=== PATIENT | male | born 1970 | race Caucasian/White ===

== ENCOUNTER 2024-03-11 08:01 | Outpatient (CLI) | payer MEDICAID, SELFPAY ==
[2024-03-11 08:56] LABS: Basophils % 0.9 %; Eosinophils # 0.1 10^3/uL (0.0-0.8); Eosinophils % 2.6 %; Hematocrit 44.6 % (37-53); Lymphocytes # 1.6 10^3/uL (0.8-4.8); Mean Corpuscular HGB Conc 33.6 g/dL (30-55); Mean Corpuscular Hemoglobin 30.1 pg (27-33); Mean Corpuscular Volume 89.6 fl (82-101); Mean Platelet Volume 10.7 fL (7.4-10.4); Monocytes # 0.7 10^3/uL (0.2-0.9); Monocytes % 15.5 %; Neutrophils # 2.04 10^3/uL (1.8-7.7); Nucleated Red Blood Cells % 0 %; Platelet Count 162 10^3/cmm (157-399); Red Blood Count 4.98 10^6/uL (3.85-5.65); Red Cell Distribution Width 13.2 % (12.1-15.1); White Blood Count 4.53 10^3/uL (3.29-11.43)
[2024-03-11 09:24] LABS: Prostate Specific Antigen Scr 1.22 ng/mL (0-4)
[2024-03-11 09:35] LABS: Alanine Aminotransferase 111 U/L (0-41); Alkaline Phosphatase 65 U/L (40-130); Anion Gap 12.2 (5-19); Aspartate Amino Transferase 62 U/L (0-40); Blood Urea Nitrogen 12 mg/dL (6-20); Calcium 8.6 mg/dL (8.5-10.5); Carbon Dioxide 25 mmol/L (22-29); Chloride 104 mmol/L (98-107); Glomerular Filtration Rate 101.5 mL/min (90-130); Glucose 89 mg/dL (65-115); Osmolality Calculated 283 mOsm/kg (285-295); Potassium 4.2 mmol/L (3.5-5.1); Sodium 137 mmol/L (136-145); Total Bilirubin 0.8 mg/dL (0.15-1.2)
[2024-03-11 10:19] LABS: HIV 1 & 2 Antibody Non-Reactive (Non-Reactiv); HIV 1 & 2 Antigen Non-Reactive (Non-Reactiv)
[2024-03-11 10:50] LABS: Hepatitis C Virus Antibody Reactive (Nonreactive)
[2024-03-13 14:03] LABS: HEP C RNA Viral Load Quant 10900000 IU/mL (NOT DETECTED); HEP C RNA Viral Load Quant 7.04 Log IU/mL (NOT DETECTED)
== END 2024-03-11 08:02 | disposition home or self-care (01) ==
LOC: LAB 08:28
PROVIDERS: Visit Provider Family Medicine
DX: Z12.5 Encounter for screening for malignant neoplasm of prostate (principal); Z11.4 Encounter for screening for human immunodeficiency virus [HIV]; Z11.59 Encounter for screening for other viral diseases; I87.8 Other specified disorders of veins
CPT/HCPCS: 36415; 80053; 84443; 85025; 86803; 87522; 87806; G0103

== ENCOUNTER 2024-06-03 11:59 | Outpatient (CLI) | payer MEDICAID, SELFPAY ==
[2024-06-03 13:26] LABS: Hepatitis A Antibody IgM Non-Reactive (Nonreactive); Hepatitis B Core AB, Total Non-Reactive (Nonreactive); Hepatitis B Surface AB 13.1 (11.5-1000); Hepatitis B Surface Antigen Non-Reactive (Nonreactive)
[2024-06-03 14:48] LABS: Hepatitis C Virus Antibody Reactive (Nonreactive)
[2024-06-10 19:55] LABS: Hepatitis C Genotype RNA 3
== END 2024-06-03 12:00 | disposition home or self-care (01) ==
PROVIDERS: Visit Provider Student in an Organized Health Care Education/Training Program
DX: B19.20 Unspecified viral hepatitis C without hepatic coma (principal)
CPT/HCPCS: 36415; 86705; 86706; 86709; 86803; 87340; 87522; 87902

== ENCOUNTER 2024-06-19 08:21 | Outpatient (CLI) | payer MEDICAID, SELFPAY ==
--- NOTE | 2024-06-19 08:30 | US_ITS ---
WS: [id number] RIGHT UPPER QUADRANT ULTRASOUND HISTORY: assess for cirrhosis COMPARISON: None available. Liver: 16.7 cm in length. Normal size liver and echogenicity. No bile duct dilatation or mass. Portal Vein: Normal hepatopetal flow with monophasic waveform. Gallbladder: Normally distended gallbladder with no stones or wall thickening. CBD: 0.3 cm Pancreas: Normal size and echogenicity. Right kidney: 10.6 cm in length. Normal size and echogenicity. No hydronephrosis or mass. Aorta and IVC: Unremarkable abdominal aorta and IVC. No ascites. US/US liver [id number] IMPRESSION: Normal right upper quadrant ultrasound.
== END 2024-06-19 08:22 | disposition home or self-care (01) ==
LOC: RAD 08:21
PROVIDERS: Visit Provider Student in an Organized Health Care Education/Training Program
DX: B19.20 Unspecified viral hepatitis C without hepatic coma (principal)
CPT/HCPCS: 76705

== ENCOUNTER 2024-07-28 08:14 | Outpatient (CLI) | payer MEDICAID, SELFPAY ==
[2024-07-28 08:46] LABS: Basophils # 0.1 10^3/uL (0.0-0.1); Basophils % 0.9 %; Eosinophils # 0.1 10^3/uL (0.0-0.8); Eosinophils % 2.1 %; Hematocrit 47.1 % (37-53); Lymphocytes # 2.1 10^3/uL (0.8-4.8); Lymphocytes % 37.4 %; Mean Corpuscular HGB Conc 33.3 g/dL (30-55); Mean Corpuscular Hemoglobin 30.3 pg (27-33); Mean Corpuscular Volume 90.9 fl (82-101); Mean Platelet Volume 10.5 fL (7.4-10.4); Monocytes # 0.8 10^3/uL (0.2-0.9); Monocytes % 13.9 %; Neutrophils # 2.56 10^3/uL (1.8-7.7); Neutrophils % 45.7 %; Nucleated Red Blood Cells % 0 %; Platelet Count 174 10^3/cmm (157-399); Red Blood Count 5.18 10^6/uL (3.85-5.65); Red Cell Distribution Width 13.1 % (12.1-15.1); White Blood Count 5.61 10^3/uL (3.29-11.43)
[2024-07-28 09:06] LABS: Alanine Aminotransferase 12 U/L (0-41); Albumin Level 4.3 g/dL (3.5-5.2); Alkaline Phosphatase 78 U/L (40-130); Anion Gap 13.6 (5-19); Aspartate Amino Transferase 15 U/L (0-40); Blood Urea Nitrogen 11 mg/dL (6-20); Calcium 8.8 mg/dL (8.5-10.5); Carbon Dioxide 27 mmol/L (22-29); Chloride 101 mmol/L (98-107); Globulin 2.9 g/dL (1.3-4.6); Glomerular Filtration Rate 88.6 mL/min (90-130); Glucose 97 mg/dL (65-115); Osmolality Calculated 283 mOsm/kg (285-295); Potassium 4.6 mmol/L (3.5-5.1); Sodium 137 mmol/L (136-145); Total Bilirubin 0.6 mg/dL (0.15-1.2); Total Protein 7.2 g/dL (6.6-8.7)
== END 2024-07-28 08:15 | disposition home or self-care (01) ==
LOC: LAB 08:14
PROVIDERS: PCP Family Medicine; Visit Provider Student in an Organized Health Care Education/Training Program
DX: B19.20 Unspecified viral hepatitis C without hepatic coma (principal)
CPT/HCPCS: 36415; 80053; 81596; 85025

== ENCOUNTER 2024-11-03 08:49 | Outpatient (CLI) | payer MEDICAID, SELFPAY ==
[2024-11-04 15:30] LABS: HEP C RNA Viral Load Quant <1.18 NOT DETECTED Log IU/mL (NOT DETECTED); HEP C RNA Viral Load Quant <15 NOT DETECTED IU/mL (NOT DETECTED)
== END 2024-11-03 08:50 | disposition home or self-care (01) ==
LOC: LAB 08:51
PROVIDERS: PCP Family Medicine; Visit Provider Student in an Organized Health Care Education/Training Program
DX: B19.20 Unspecified viral hepatitis C without hepatic coma (principal)
CPT/HCPCS: 36415; 87522

== ENCOUNTER 2024-12-17 15:22 | Outpatient (CLI) | payer MEDICAID, SELFPAY ==
--- NOTE | 2024-12-17 15:23 | US_ITS ---
WS: [id number] US pelvic complete* [id number] HISTORY: INGUINAL LYMPHADENOPATHY COMPARISON: None available. Ultrasound is directed to the inguinal regions to evaluate for adenopathy. RIGHT inguinal lymph node maintains its normal ovoid shape. Lymph node measures 3.5 x 2.5 x 0.9 cm with diffuse fatty infiltrat ion. No cortical thickening. There are a few additional similar lymph nodes. Similar lymph nodes in t he LEFT inguinal region. Lymph nodes do not appear to be enlarged or abnormal. US/US pelvic complete* [id number] IMPRESSION: Benign-appearing bilateral inguinal lymph nodes.
== END 2024-12-17 15:23 | disposition home or self-care (01) ==
LOC: RAD 15:22
PROVIDERS: PCP Family Medicine; Visit Provider Family Medicine
DX: R59.0 Localized enlarged lymph nodes (principal)
CPT/HCPCS: 76856